=== PATIENT | male | born 1985 | race Hispanic/Latino ===

== ENCOUNTER 2017-09-15 15:39 | Emergency (ER) | payer OTHER ==
[~2017-09-15] VITALS: Ht 185.4 cm; Wt 63.5 kg
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
--- OUTSIDE RECORDS SUMMARY | 2017-09-15 15:42 | XMS REPORT ---
Author Author [facility] Address Unknown Phone Unavailable Care Team Providers Care Dance Artist Name Role Phone LALY SALVADOR Unavailable Unavailable Problems This patient has no known problems. Allergies, Adverse Reactions, Alerts This patient has no known allergies or adverse reactions. Medications This patient has no known medications. Results Test Description Test Time Test Comments Text Results Atomic Results Result Comments BASIC METABOLIC PANEL 2017-07-30 06:21:00 SODIUM (BEAKER) (test kelt=880) 141 meq/L 136-145 POTASSIUM (BEAKER) (test fkta=136) 3.7 meq/L 3.5-5.1 CHLORIDE (BEAKER) (test mkkr=286) 105 meq/L 98-107 CO2 (BEAKER) (test tupd=806) 26 meq/L 22-29 BLOOD UREA NITROGEN (BEAKER) (test zqgg=251) 13 mg/dL 7-21 CREATININE (BEAKER) (test foap=547) 0.84 mg/dL 0.57-1.25 GLUCOSE RANDOM (BEAKER) (test etfl=439) 75 mg/dL 70-105 CALCIUM (BEAKER) (test fncl=319) 8.9 mg/dL 8.4-10.2 EGFR (BEAKER) (test abzv=9401) 107 mL/min/1.73 sq m ESTIMATED GFR IS NOT ACCURATE CREATININE CLEARANCE IN PREDICTING GLOMERULAR FILTRATION RATE. ESTIMATED GFR IS NOT APPLICABLE FOR DIALYSIS PATIENTS. BASIC METABOLIC [id number] 06:00:00* Test Item Value Reference Range Comments SODIUM (BEAKER) (test dnqy=776) 144 meq/L 136-145 POTASSIUM (BEAKER) (test ojdx=637) 4.2 meq/L 3.5-5.1 CHLORIDE (BEAKER) (test gdqb=956) 109 meq/L 98-107 CO2 (BEAKER) (test zaof=994) 27 meq/L 22-29 BLOOD UREA NITROGEN (BEAKER) (test kurq=916) 10 mg/dL 7-21 CREATININE (BEAKER) (test whid=336) 0.96 mg/dL 0.57-1.25 GLUCOSE RANDOM (BEAKER) (test nfyc=459) 91 mg/dL 70-105 CALCIUM (BEAKER) (test adme=872) 9.4 mg/dL 8.4-10.2 EGFR (BEAKER) (test rxfa=5104) 91 mL/min/1.73 sq m ESTIMATED GFR IS NOT ACCURATE CREATININE CLEARANCE IN PREDICTING GLOMERULAR FILTRATION RATE. ESTIMATED GFR IS NOT APPLICABLE FOR DIALYSIS PATIENTS. BASIC METABOLIC [id number] 04:07:00* Test Item Value Reference Range Comments SODIUM (BEAKER) (test ptuo=451) 145 meq/L 136-145 POTASSIUM (BEAKER) (test kbth=252) 3.9 meq/L 3.5-5.1 CHLORIDE (BEAKER) (test ryur=872) 111 meq/L 98-107 CO2 (BEAKER) (test aigg=177) 27 meq/L 22-29 BLOOD UREA NITROGEN (BEAKER) (test mgey=864) 11 mg/dL 7-21 CREATININE (BEAKER) (test dpjp=846) 0.96 mg/dL 0.57-1.25 GLUCOSE RANDOM (BEAKER) (test syey=447) 95 mg/dL 70-105 CALCIUM (BEAKER) (test ftsj=573) 9.0 mg/dL 8.4-10.2 EGFR (BEAKER) (test orxy=3363) 91 mL/min/1.73 sq m ESTIMATED GFR IS NOT ACCURATE CREATININE CLEARANCE IN PREDICTING GLOMERULAR FILTRATION RATE. ESTIMATED GFR IS NOT APPLICABLE FOR DIALYSIS PATIENTS. RAD, ABDOMEN/KUB, 1 VIEW [id number] 19:48:00Reason for exam:->ileusShould this be performed at the bedside?->YesFINAL REPORT RAD, ABDOMEN/KUB, 1 VIEW AP CLINICAL INDICATION: ileus COMPARISON: July 26, 2017 TECHNIQUE: Single, frontal radiograph of the abdomen. IMPRESSION:The bowel gas pattern reveals diffuse gaseous distention without pneumatosis or dilation. Appearance is compatible with provided history of ileus. No abnormal mass or ascites is detected. Stable positioning of subdermal pump apparatus. The regional skeleton is intact. Signed: JR Echevarria Robert [facility]ENTER[facility]ort Verified Date/Time: 07/27/2017 19:48:47 Reading Location: [address] Reading Room E [id number] 14:00:00* Test Item Value Reference Range Comments CULTURE (BEAKER) (test zldh=2297) No growth BASIC METABOLIC [id number] 11:01:00* Test Item Value Reference Range Comments SODIUM (BEAKER) (test echz=960) 145 meq/L 136-145 POTASSIUM (BEAKER) (test akzp=536) 4.4 meq/L 3.5-5.1 Specimen slightly hemolyzed CHLORIDE (BEAKER) (test gpvs=931) 109 meq/L 98-107 CO2 (BEAKER) (test uadx=918) 29 meq/L 22-29 BLOOD UREA NITROGEN (BEAKER) (test mdgn=608) 13 mg/dL 7-21 CREATININE (BEAKER) (test onqq=292) 1.00 mg/dL 0.57-1.25 Specimen slightly hemolyzed GLUCOSE RANDOM (BEAKER) (test yxjx=567) 102 mg/dL 70-105 CALCIUM (BEAKER) (test zdcw=693) 9.5 mg/dL 8.4-10.2 EGFR (BEAKER) (test gths=4443) 87 mL/min/1.73 sq m ESTIMATED GFR IS NOT ACCURATE CREATININE CLEARANCE IN PREDICTING GLOMERULAR FILTRATION RATE. ESTIMATED GFR IS NOT APPLICABLE FOR DIALYSIS PATIENTS. RAD, ABDOMEN/KUB, 1 VIEW [id number] 09:25:00Reason for exam:->ILEUSShould this be performed at the bedside?->YesFINAL REPORT Technique: Frontal images of the abdomen COMPARISON: None FINDINGS: Bowel gas pattern is nonspecific. No gross free intraperitoneal air. Electrical generator device over the left lower quadrant noted. There is contrast in the bladder. No acute skeletal abnormality. Signed: Girma Dawn MDReport Verified Date/Time: 09:25:27 Reading Location: [facility] [address] [facility] Reading Room ALYSIS W / [id number] 19:49:00* Test Item Value Reference Range Comments COLOR (BEAKER) (test xyzj=935) Yellow CLARITY (BEAKER) (test xavs=466) Clear SPECIFIC GRAVITY UA (BEAKER) (test wlfs=155) 1.036 1.001-1.035 PH UA (BEAKER) (test wrkg=194) 6.5 5.0-8.0 PROTEIN UA (BEAKER) (test tmvf=016) 100 mg/dL Negative GLUCOSE UA (BEAKER) (test gxat=362) Negative Negative KETONES UA (BEAKER) (test tgkl=628) 10 mg/dL Negative BILIRUBIN UA (BEAKER) (test ngtq=234) Negative Negative BLOOD UA (BEAKER) (test cyxy=259) Negative Negative NITRITE UA (BEAKER) (test ayjw=596) Negative Negative LEUKOCYTE ESTERASE UA (BEAKER) (test moey=610) Negative Negative UROBILINOGEN UA (BEAKER) (test hdsi=763) 0.2 mg/dL 0.2-1.0 RBC UA (BEAKER) (test pqyf=907) 0 /HPF WBC UA (BEAKER) (test qhhx=803) 1 /HPF MUCUS (BEAKER) (test keds=9989) Rare SOURCE(BEAKER) (test kiij=9417) Urine, Straight Catheter CT, [id number] 11:44:00Reason for exam:->abdominal painWhat is the patient's sedation requirement?->No SedationFINAL REPORT ABDOMINAL AND PELVIS CT DATED 07/25/2017 CLINICAL INFORMATION: abdominal painvomiting/baclofen pump/traumatic brain TECHNIQUE: Axial images of the [...] adenopathy or ascites is present. IMPRESSION: 1. Hepatosplenomegaly.2. Constipation.3. Nonspecific dilatation of the proximal small bowel in the upper abdomen. Partial small bowel obstruction cannot be excluded. Please correlate clinically. Signed: Yves Alvarado MDReport Verified Date/Time: 07/25/2017 11:44: 46 Reading Location: [address] Radiology Reading Room [id number] 02:32:00* Test Item Value Reference Range Comments LIPASE (BEAKER) (test ymsd=966) 36 U/L 8-78 [id number] 02:32:00* Test Item Value Reference Range Comments AMYLASE (BEAKER) (test oaod=291) 90 U/L 25-125 BASIC METABOLIC [id number] 02:32:00* Test Item Value Reference Range Comments SODIUM (BEAKER) (test lnew=950) 141 meq/L 136-145 POTASSIUM (BEAKER) (test yqds=985) 4.3 meq/L 3.5-5.1 CHLORIDE (BEAKER) (test adxe=587) 99 meq/L 98-107 CO2 (BEAKER) (test pcux=988) 30 meq/L 22-29 BLOOD UREA NITROGEN (BEAKER) (test qsyo=193) 26 mg/dL 7-21 CREATININE (BEAKER) (test jltm=517) 1.01 mg/dL 0.57-1.25 GLUCOSE RANDOM (BEAKER) (test dszf=356) 150 mg/dL 70-105 CALCIUM (BEAKER) (test lzgc=764) 10.5 mg/dL 8.4-10.2 EGFR (BEAKER) (test aqsl=1021) 86 mL/min/1.73 sq m ESTIMATED GFR IS NOT ACCURATE CREATININE CLEARANCE IN PREDICTING GLOMERULAR FILTRATION RATE. ESTIMATED GFR IS NOT APPLICABLE FOR DIALYSIS PATIENTS. HEPATIC FUNCTION [id number] 02:32:00* Test Item Value Reference Range Comments TOTAL PROTEIN (BEAKER) (test uyct=641) 8.4 gm/dL 6.0-8.3 ALBUMIN (BEAKER) (test mkqv=3048) 4.9 g/dL 3.5-5.0 BILIRUBIN TOTAL (BEAKER) (test kbzu=431) 0.5 mg/dL 0.2-1.2 BILIRUBIN DIRECT (BEAKER) (test lmjh=664) 0.2 mg/dL 0.1-0.5 ALKALINE PHOSPHATASE (BEAKER) (test mbxf=683) 49 U/L 40-150 AST (SGOT) (BEAKER) (test ozcp=764) 19 U/L 5-34 ALT (SGPT) (BEAKER) (test gcha=782) 20 U/L 6-55 CBC W/PLT COUNT & AUTO [id number] 02:18:00* Test Item Value Reference Range Comments WHITE BLOOD CELL COUNT (BEAKER) (test dhbc=510) 8.3 K/ L 3.5-10.5 RED BLOOD CELL COUNT (BEAKER) (test khbp=649) 5.85 M/ L 4.63-6.08 HEMOGLOBIN (BEAKER) (test cjbf=922) 12.3 GM/DL 13.7-17.5 HEMATOCRIT (BEAKER) (test ruhw=956) 40.5 % 40.1-51.0 MEAN CORPUSCULAR VOLUME (BEAKER) (test msoy=302) 69.2 fL 79.0-92.2 MEAN CORPUSCULAR HEMOGLOBIN (BEAKER) (test ajwb=895) 21.0 pg 25.7-32.2 MEAN CORPUSCULAR HEMOGLOBIN CONC (BEAKER) (test dolp=799) 30.4 GM/DL 32.3- 36.5 RED CELL DISTRIBUTION WIDTH (BEAKER) (test jymn=629) 15.6 % 11.6-14.4 PLATELET COUNT (BEAKER) (test ihqe=295) 226 K/CU MM 150-450 MEAN PLATELET VOLUME (BEAKER) (test lcni=182) fL 9.4-12.4 Unable to report due to abnormal Platelet population distribution. NUCLEATED RED BLOOD CELLS (BEAKER) (test ciee=855) 0 /100 WBC 0-0 NEUTROPHILS RELATIVE PERCENT (BEAKER) (test qddn=154) 84 % LYMPHOCYTES RELATIVE PERCENT (BEAKER) (test udvy=080) 12 % MONOCYTES RELATIVE PERCENT (BEAKER) (test hxej=554) 3 % EOSINOPHILS RELATIVE PERCENT (BEAKER) (test drip=098) 0 % BASOPHILS RELATIVE PERCENT (BEAKER) (test fyso=271) 0 % NEUTROPHILS ABSOLUTE COUNT (BEAKER) (test qhyx=012) 7.02 K/ L 1.78-5.38 LYMPHOCYTES ABSOLUTE COUNT (BEAKER) (test vipe=904) 1.00 K/ L 1.32-3.57 MONOCYTES ABSOLUTE COUNT (BEAKER) (test kuiq=548) 0.28 K/ L 0.30-0.82 EOSINOPHILS ABSOLUTE COUNT (BEAKER) (test vcdw=489) 0.01 K/ L 0.04-0.54 BASOPHILS ABSOLUTE COUNT (BEAKER) (test zgsk=876) 0.02 K/ L 0.01-0.08 IMMATURE GRANULOCYTES-RELATIVE PERCENT (BEAKER) (test eygx=7806) 0 % 0-1 FL, REGULATORY COMPLIANCE DIRECTOR IN OR/30 MINUTE [id number] 17:47:00Reason for exam:-> baclofen pump placementFINAL REPORT Fluoroscopy nonspecific dated April 28, 2017 Comment: 2 fluoroscopic images were submitted for interpretation. No radiologist was present during the examination. The procedure was provided to assist Dr. Christie for intraoperative procedure. Signed: Yves Alvarado Verified Date/Time: 04/28/2017 17:47: 11 Reading Location: [address] Radiology Reading Room , REGULATORY COMPLIANCE DIRECTOR IN OR/30 MINUTE [id number] 11:55:00Reason for exam:->Baclofen pain pump trialFINAL REPORT TECHNIQUE: Fluoroscopic images from pain management procedure were submitted for interpretation. INDICATION: 32-year -old man for baclofen pain pump trial. COMPARISON: None. FINDINGS:Frontal and lateral images of the lumbar spine show a needle projecting over the posterior elements of the lower lumbar spine. Fluoroscopy time: 15.8 secondsNumber of images: 2 IMPRESSION:Fluoroscopic images from pain management procedure as detailed above, not obtained by the undersigned. Please refer to operative note for more details of the procedure and findings. Signed: Joie Johnson MDReport Verified Date/Time: 04/21/2017 11:55:05 Reading Location: [address] Radiology Reading Room
[2017-09-15] MEDS ORDERED: ONDANSETRON HCL INJ 2 MG/ML VIAL IV STA (17:27)
[2017-09-15] MEDS ORDERED: SODIUM CHLORIDE 0.9% 1000ML 1,000 ML IV STA (17:27)
[2017-09-15 17:42] LABS: BASOPHILS # (AUTO) 0.1 (0.0-0.1); EOSINOPHILS # (AUTO) 0.4 (0.0-0.4); EOSINOPHILS % 6.6 % (0.0-6.0); HEMATOCRIT 39.3 % (38.2-49.6); HEMOGLOBIN 11.8 g/dL (14.0-18.0); LYMPHOCYTES # (AUTO) 1.9 (1.0-3.2); LYMPHOCYTES % 31.5 % (18.0-39.1); MEAN CORPUSCULAR HEMOGLOBIN 20.6 pg (28-32); MEAN CORPUSCULAR VOLUME 68.5 fL (81-99); MONOCYTES # (AUTO) 0.5 (0.2-0.8); MONOCYTES % 8.7 % (4.4-11.3); NEUTROPHILS # (AUTO) 3.1 (2.1-6.9); PLATELET COUNT 309 x10e3/uL (140-360); RED BLOOD COUNT 5.74 x10e6/uL (4.3-5.7); RED CELL DISTRIBUTION WIDTH 14.8 % (11.7-14.4)
[2017-09-15 17:51] LABS: INR 1.29; PARTIAL THROMBOPLASTIN TIME 41.3 seconds (23.8-35.5); PROTHROMBIN TIME 15.1 seconds (11.9-14.5)
[2017-09-15 18:02] LABS: ALANINE AMINOTRANSFERASE 13 IU/L (0-55); ALBUMIN 4.4 g/dL (3.5-5.0); ALBUMIN/GLOBULIN RATIO 1.1 (0.8-2.0); ALKALINE PHOSPHATASE 63 IU/L (40-150); ANION GAP 13.5 mmol/L (8-16); BLOOD UREA NITROGEN 24 mg/dL (7-26); BUN/CREATININE RATIO 20 (6-25); CALCIUM 10.3 mg/dL (8.4-10.2); CARBON DIOXIDE 31 mmol/L (22-29); CHLORIDE 104 mmol/L (98-107); CREATINE KINASE 113 IU/L (30-200); CREATININE, SERUM 1.21 mg/dL (0.72-1.25); EST GLOMERULAR FILTRATION RATE > 60 ML/MIN (60-); GLUCOSE 80 mg/dL (74-118); MAGNESIUM 1.8 MG/DL (1.3-2.1); POTASSIUM 4.5 mmol/L (3.5-5.1); SODIUM 144 mmol/L (136-145)
[2017-09-15] MEDS ORDERED: SODIUM CHLORIDE 0.9% 1000ML 1,000 ML ONE (21:36)
[2017-09-15 23:29] LABS: BILIRUBIN,URINE NEGATIVE (NEGATIVE); CLARITY,URINE CLEAR (CLEAR); COLOR,URINE YELLOW (YELLOW); KETONES,URINE TRACE (NEGATIVE); LEUKOCYTE ESTERASE ,URINE NEGATIVE (NEGATIVE); NITRITE,URINE NEGATIVE (NEGATIVE); PROTEIN,URINE DIPSTICK TRACE (NEGATIVE); URINE UROBILINOGEN 0.2 mg/dL (0.2 - 1)
[2017-09-15 23:41] LABS: BACTERIA,URINE RARE /HPF; EPITHELIAL CELLS,URINE RARE /LPF; RBC,URINE 0-5 /HPF (0-5); WBC,URINE (MAN) 0-5 /HPF (0-5)
== END 2017-09-16 00:56 | disposition home or self-care (01) ==
LOC: ER 15:39
DX: R11.0 Nausea (principal); B37.9 Candidiasis, unspecified
CPT/HCPCS: 36415; 80053; 81001; 82550; 82553; 83735; 84484; 85025; 85610; 85730; 99283; J7030